=== PATIENT | male | born 1995 | race Caucasian/White ===

== ENCOUNTER 2016-09-18 21:33 | Emergency (ER) | payer OTHER ==
[2016-09-18 21:34] VITALS: BP 149/100; PULSE 105; RESP 20; TEMP 98.7; O2SAT 98
--- NOTE | 2016-09-18 22:06 | PD ---
HPI Chief Complaint: Alcohol/Drug Intoxication Time Seen by Provider: 21:56 Travel History International Travel<30 days: No Contact w/Intl Traveler<30days: No Traveled to known affect area: No History of Present Illness HPI This is a 21-year-old male who presents to the emergency department brought in by a family friend because he's been altered and behaving bizarrely for 3 days. 3 days ago he went to a concert and he used acid and Yesi. It's unclear if he used it once, some of his friends suggested he may have used acid multiple days in a row. He's been very bizarre ever since then. His parents were concerned and live out of [place] so they contacted a family friend who brought him to the emergency department. Patient doesn't provide much history but does acknowledge recreational drug use. [facility] Past Medical History Narrative Medical Otherwise healthy Social History Alcohol Use: Yes Tobacco Use: No Substance Use: Yes Allergies-Medications (Allergen,Severity, Reaction): Coded Allergies: No Known Allergies (Unverified , 09/18/16) Reported Meds & Prescriptions Reported Meds & Active Scripts Active No Active Prescriptions or Reported Medications Review of Systems Except as stated in HPI: all other systems reviewed are Neg Physical Exam Narrative GENERAL:Well appearing, no acute distress SKIN: Warm and dry. HEAD: Atraumatic. Normocephalic. EYES: Pupils are 3 mm, equal and reactive. Some bilateral conjunctival injection. ENT: Moist mucous membranes NECK: Trachea midline. CARDIOVASCULAR: Regular rate and rhythm. No murmur appreciated. RESPIRATORY: Clear to auscultation. Breath sounds equal bilaterally. GASTROINTESTINAL: Abdomen soft, non-tender, nondistended. MUSCULOSKELETAL: No obvious deformities. NEUROLOGICAL: Awake and alert. No obvious cranial nerve deficits. Moving all extremities. PSYCHIATRIC: Bizarre behavior, poor eye contact Data Data Last Documented VS Vital Signs Date Time Temp Pulse Resp B/P Pulse Ox O2 Delivery O2 Flow Rate FiO2 09/18/16 22:20 98 18 98 Room Air 09/18/16 22:20 98.4 125/79 Orders Complete Blood Count With Diff (09/18/16 22:04) Comprehensive Metabolic Panel (09/18/16 22:04) ^ Insert Iv (09/18/16 22:04) Drug Screen, Random Urine (09/18/16 22:04) Alcohol (Ethanol) (09/18/16 22:04) Psych Screen (09/18/16 22:04) Cath For Specimen (09/18/16 22:57) Labs Laboratory Tests Test 09/18/16 09/18/16 22:32 23:45 White Blood Count 16.4 TH/MM3 Red Blood Count 5.72 MIL/MM3 Hemoglobin 16.7 GM/DL Hematocrit 48.7 % Mean Corpuscular Volume 85.2 FL Mean Corpuscular Hemoglobin 29.2 PG Mean Corpuscular Hemoglobin 34.3 % Concent Red Cell Distribution Width 13.0 % Platelet Count 284 TH/MM3 Mean Platelet Volume 8.6 FL Neutrophils (%) (Auto) 78.6 % Lymphocytes (%) (Auto) 15.2 % Monocytes (%) (Auto) 5.6 % Eosinophils (%) (Auto) 0.2 % Basophils (%) (Auto) 0.4 % Neutrophils # (Auto) 12.9 TH/MM3 Lymphocytes # (Auto) 2.5 TH/MM3 Monocytes # (Auto) 0.9 TH/MM3 Eosinophils # (Auto) 0.0 TH/MM3 Basophils # (Auto) 0.1 TH/MM3 CBC Comment DIFF FINAL Differential Comment Sodium Level 137 MEQ/L Potassium Level 3.5 MEQ/L Chloride Level 102 MEQ/L Carbon Dioxide Level 23.2 MEQ/L Anion Gap 12 MEQ/L Blood Urea Nitrogen 10 MG/DL Creatinine 1.19 MG/DL Estimat Glomerular Filtration 78 ML/MIN Rate Random Glucose 184 MG/DL Calcium Level 9.6 MG/DL Total Bilirubin 1.4 MG/DL Aspartate Amino Transf 11 U/L (AST/SGOT) Alanine Aminotransferase 21 U/L (ALT/SGPT) Alkaline Phosphatase 64 U/L Total Protein 8.4 GM/DL Albumin 4.9 GM/DL Ethyl Alcohol Level LESS THAN 3 MG/DL Urine Opiates Screen NEG Urine Barbiturates Screen NEG Urine Amphetamines Screen NEG Urine Benzodiazepines Screen NEG Urine Cocaine Screen NEG Urine Cannabinoids Screen POS MDM Medical Decision Making Medical Screen Exam Complete: Yes Emergency Medical Condition: Yes Interpretation(s) Tachycardic, mild hypertensive Leukocytosis 78% neutrophils Mildly elevated total bilirubin Urine drug screen is positive for cannabinoid Differential Diagnosis Hallucinogen intoxication, cannabinoid intoxication, alcohol intoxication, encephalopathy Narrative Course This is a 21-year-old male who presents to the emergency department having abused multiple substances earlier in the week. Patient appears intoxicated with conjunctival injection and bizarre behavior. Labs were obtained which were notable for a leukocytosis which I suspect is a stress response in the setting of substance intoxication. He is otherwise afebrile and doesn't localize infectious symptoms. He doesn't have any meningismus and he is well- appearing and doesn't appear to have underlying encephalopathy. His urine drug screen was positive for cannabinoid. On reassessment he was much more cooperative and able to say where he was in his name and articulate some decision-making. He is with family. I think he's safe for discharge. Diagnosis Primary Impression: Substance intoxication Qualified Code: F19.120 - Substance intoxication, uncomplicated Patient Instructions: General Instructions Additional Instructions: Follow up with Eliza Rondon in regards to psychiatric or substance related issues at: [address] [place], [place] [id number] Med/Other Pt SpecificInfo: No Change to Meds Scripts No Active Prescriptions or Reported Meds Disposition: 01 DISCHARGE HOME Condition: Stable Monserrat Fields MD Sep 18, 2016 22:06
[2016-09-18 22:20] VITALS: BP 125/79; PULSE 108; RESP 18; TEMP 98.4; O2SAT 100
[2016-09-18 23:10] LABS: AUTOMATED NEUTROPHIL # 12.9 TH/MM3 (1.8-7.7); BASOPHIL # 0.1 TH/MM3 (0-0.2); BASOPHIL % 0.4 % (0.0-2.0); EOSINOPHIL % 0.2 % (0.0-4.0); HEMATOCRIT 48.7 % (39.0-51.0); HEMO FLAGS DIFF FINAL; LYMPH % 15.2 % (9.0-44.0); LYMPHOCYTE # 2.5 TH/MM3 (1.0-4.8); MEAN CELL VOLUME 85.2 FL (80.0-100.0); MEAN CORPUSCULAR HEMOGLOBIN 29.2 PG (27.0-34.0); MEAN CORPUSCULAR HGB CONC 34.3 % (32.0-36.0); MONO % 5.6 % (0.0-8.0); NEUT % 78.6 % (16.0-70.0); PLATELET COUNT 284 TH/MM3 (150-450); RED BLOOD COUNT 5.72 MIL/MM3 (4.50-5.90); WHITE BLOOD COUNT 16.4 TH/MM3 (4.0-11.0)
[2016-09-18 23:26] LABS: ALT (GPT) 21 U/L (9-52); ANION GAP 12 MEQ/L (5-15); AST (GOT) 11 U/L (15-39); BICARBONATE 23.2 MEQ/L (21.0-32.0); BLOOD UREA NITROGEN 10 MG/DL (7-18); CHLORIDE 102 MEQ/L (98-107); GLOMERULAR FILTRATION RATE 78 ML/MIN (>89); POTASSIUM 3.5 MEQ/L (3.5-5.1); SODIUM (NA) 137 MEQ/L (136-145)
[2016-09-18 23:27] LABS: ALKALINE PHOSPHATASE 64 U/L (45-117); TOTAL BILIRUBIN ADULT 1.4 MG/DL (0.2-1.0)
[2016-09-19 00:05] LABS: AMPHETAMINE, URINE NEG (NEG); BARBITURATES, URINE NEG (NEG); COCAINE, URINE NEG (NEG)
== END 2016-09-19 00:57 | disposition home or self-care (01) ==
LOC: NEPE 21:33
DX: F19.120 Other psychoactive substance abuse with intoxication, uncomplicated (principal)
CPT/HCPCS: 80053; 80307; 85025; 99284; P9612